=== PATIENT | female | born 1975 | race African-American/Black ===

== ENCOUNTER 2017-07-27 01:14 | Emergency (ER) | payer SELFPAY | END 2017-07-27 01:38 | disposition left against medical advice (07) | LOC: ER 01:14 | DX: R41.82 Altered mental status, unspecified (principal); F10.10 Alcohol abuse, uncomplicated; Z53.21 Procedure and treatment not carried out due to patient leaving prior to being seen by health care provider ==

== ENCOUNTER 2019-01-20 21:18 | Emergency (ER) | payer OTHER ==
[~2019-01-20] VITALS: Ht 162.6 cm; Wt 73.0 kg
[2019-01-21] MEDS ORDERED: KETOROLAC 30MG/ML VIAL IM ONE (03:30)
[2019-01-21 06:06] VITALS: BP 157/89
== END 2019-01-21 06:07 | disposition home or self-care (01) ==
LOC: ER 21:51
DX: S39.012A Strain of muscle, fascia and tendon of lower back, initial encounter (principal); I10 Essential (primary) hypertension; R51 Headache; F17.200 Nicotine dependence, unspecified, uncomplicated; Z88.0 Allergy status to penicillin; Z98.890 Other specified postprocedural states; V49.59XA Passenger injured in collision with other motor vehicles in traffic accident, initial encounter; Y93.89 Activity, other specified; Y92.89 Other specified places as the place of occurrence of the external cause; Y99.8 Other external cause status
CPT/HCPCS: 70450; 72100; 72220; 96372; 99284; J1885

== ENCOUNTER 2019-09-09 21:37 | Emergency (ER) | payer OTHER ==
[~2019-09-09] VITALS: Ht 170.2 cm; Wt 68.0 kg
[2019-09-10 00:22] VITALS: BP 132/78
== END 2019-09-10 00:39 | disposition home or self-care (01) ==
LOC: ER 21:37
DX: L65.9 Nonscarring hair loss, unspecified (principal); Z88.0 Allergy status to penicillin
CPT/HCPCS: 99283

== ENCOUNTER 2019-09-11 00:24 | Emergency (ER) | payer OTHER ==
[~2019-09-11] VITALS: Ht 165.1 cm; Wt 63.0 kg
[2019-09-11 00:27] VITALS: BP 135/94
== END 2019-09-11 00:44 | disposition home or self-care (01) ==
LOC: ER 00:24
DX: L65.9 Nonscarring hair loss, unspecified (principal); F12.10 Cannabis abuse, uncomplicated; F17.200 Nicotine dependence, unspecified, uncomplicated; Z88.0 Allergy status to penicillin
CPT/HCPCS: 99283

== ENCOUNTER 2021-11-01 13:25 | Emergency (ER) | payer MEDICAID, OTHER ==
[~2021-11-01] VITALS: Ht 162.6 cm; Wt 73.0 kg
[2021-11-01 13:36] VITALS: BP 167/92
== END 2021-11-01 14:54 | disposition home or self-care (01) ==
LOC: ER 13:25
DX: L65.9 Nonscarring hair loss, unspecified (principal); B36.0 Pityriasis versicolor; R21 Rash and other nonspecific skin eruption; I10 Essential (primary) hypertension; Z88.0 Allergy status to penicillin
CPT/HCPCS: 99281

== ENCOUNTER 2022-08-28 23:03 | Emergency (ER) | payer OTHER ==
[~2022-08-28] VITALS: Ht 172.7 cm; Wt 72.0 kg
[2022-08-29] MEDS ORDERED: IBUPROFEN 400MG TABLET PO ONE
[2022-08-29] MEDS ORDERED: IBUP-2028 MT (01:51)
[2022-08-29 03:05] VITALS: BP 158/92
== END 2022-08-29 03:14 | disposition home or self-care (01) ==
LOC: ER 23:10
DX: M25.571 Pain in right ankle and joints of right foot (principal); I10 Essential (primary) hypertension; S82.54XD Nondisplaced fracture of medial malleolus of right tibia, subsequent encounter for closed fracture with routine healing; X58.XXXD Exposure to other specified factors, subsequent encounter; Z88.0 Allergy status to penicillin
CPT/HCPCS: 29515; 73610; 99283

== ENCOUNTER 2022-09-01 03:03 | Emergency (ER) | payer OTHER ==
[~2022-09-01] VITALS: Ht 172.7 cm; Wt 72.0 kg
[~2022-09-01 03:03] MED LIST: IBUP-2028 MT
[2022-09-01 03:06] VITALS: BP 160/88
[2022-09-01] MEDS ORDERED: NAPR-681 PO (04:56)
== END 2022-09-01 04:50 | disposition home or self-care (01) ==
LOC: ER 03:03
DX: M25.571 Pain in right ankle and joints of right foot (principal); F91.9 Conduct disorder, unspecified; I10 Essential (primary) hypertension; Z88.0 Allergy status to penicillin; Z87.81 Personal history of (healed) traumatic fracture
CPT/HCPCS: 99283

== ENCOUNTER 2022-09-18 18:09 | Emergency (ER) | payer OTHER ==
[~2022-09-18] VITALS: Ht 167.6 cm; Wt 87.0 kg
[~2022-09-18 18:09] MED LIST changes: -IBUP-2028 MT; +NAPR-681 PO
[2022-09-18 18:13] VITALS: BP 164/100
== END 2022-09-18 20:45 | disposition left against medical advice (07) ==
LOC: ER 18:09
DX: H57.89 Other specified disorders of eye and adnexa (principal); Z88.0 Allergy status to penicillin; F12.10 Cannabis abuse, uncomplicated
CPT/HCPCS: 99283